=== PATIENT | male | born 1985 | race Caucasian/White ===

== ENCOUNTER 2019-11-03 16:50 | Emergency (ER) | payer BC, OTHER ==
[~2019-11-03] VITALS: Ht 182.9 cm; Wt 79.0 kg
[~2019-11-03 16:50] MED LIST: CLON1TAB PO; ERYT500T17 PO; ONDA4TAB10 PO; SCOP1PAT11 TD; TRAM200T34 PO; ZOLP10TA PO; [UNRECOGNIZED DRUG - CODE] PO
[2019-11-03] MEDS ORDERED: IV NORMAL SALINE 1,000ML 1,000 ML IV SCH (17:14)
[2019-11-03] MEDS ORDERED: HALOPERIDOL LACT 5 MG/ML VIAL. IVP ONE (17:15)
--- NOTE | 2019-11-03 17:25 | PHYS DOC ---
Past History Past Medical History: Anxiety, Other Additional Past Medical Histor: cyclic vomiting; gastorparesis (DAVEY MULLEN MD) Past Medical History Hx. of Cyclic Vomiting (JESSICA PITTMAN MD) Past Surgical History: Appendectomy, Cholecystectomy, Other Additional Past Surgical Histo: exploratory lap in which 3 in small intestines were removed (DAVEY MULLEN MD) Smoking: Cigarettes, Greater than 1 pack/day Alcohol Use: None Drug Use: None (DAVEY MULLEN MD) Smoking: Cigarettes Alcohol Use: Rarely Drug Use: Marijuana (JESSICA PITTMAN MD) General Adult EDM: Chief Complaint: NAUSEA/VOMITING/DIARRHEA HPI: HPI: Patient is a 33-year-old male who states he has a history of cyclic vomiting syndrome due to gastroparesis who presents to the emergency department for evaluation of intractable vomiting for the past 2 weeks. He also has generalized upper abdominal pain. He states he was seen at [facility] this past Sunday for similar symptoms. He states he has not had any bloody emesis, or loose or bloody stools. He states his symptoms feel exactly the same as his prior episodes of gastroparesis. He states he has a longstanding history of marijuana abuse, but states that he stopped smoking a few months ago. There are no alleviating or exacerbating factors to his symptoms. (DAVEY MULLEN MD) Review of Systems: Review of Systems: Constitutional: Denies fever or chills Eyes: Denies change in visual acuity HENT: Denies nasal congestion or sore throat Respiratory: Denies cough or shortness of breath Cardiovascular: Denies chest pain or edema GI: As per HPI : Denies dysuria Musculoskeletal: Denies back pain or joint pain Integument: Denies rash Neurologic: Denies headache, focal weakness or sensory changes Endocrine: Denies polyuria or polydipsia Lymphatic: Denies swollen glands Psychiatric: Denies depression. Admits to anxiety (DAVEY MULLEN MD) Heart Score: Risk Factors: Risk Factors: DM, Current or recent (<one month) smoker, HTN, HLP, family history of CAD, obesity. Risk Scores: Score 0 - 3: 2.5% MACE over next 6 weeks - Discharge Home Score 4 - 6: 20.3% MACE over next 6 weeks - Admit for Clinical Observation Score 7 - 10: 72.7% MACE over next 6 weeks - Early Invasive Strategies (DAVEY MULLEN MD) Current Medications: Current Meds: Current Medications Medications (Trade) Dose Ordered Sig/Te Start Time Stop Time Status Last Admin Dose Admin Haloperidol Lactate (Haldol) 5 mg 1X ONCE 11/03/19 17:15 11/03/19 17:16 UNV Lorazepam (Ativan Inj) 0.5 mg 1X ONCE 11/03/19 17:15 11/03/19 17:16 UNV Sodium Chloride 1,000 ml @ 1,000 mls/hr Q1H 11/03/19 17:14 11/03/19 18:13 UNV (DAVEY MULLEN MD) Allergies: Allergies: Allergies Coded Allergies Type Severity Reaction Last Updated Verified morphine Allergy Intermediate localized 11/03/19 Yes metoclopramide Allergy Unknown 11/03/19 Yes (DAVEY MULLEN MD) Physical Exam: PE: PHYSICAL EXAM: CONSTITUTIONAL: Well developed, well nourished HEAD: normocephalic, atraumatic EENT: PERRL, EOMI. Conjunctivae normal color, sclerae non-icteric; moist mucous membranes. NECK: Supple, non-tender; no meningismus. LUNGS: Lungs CTA, breathing even and unlabored. Normal air movement. HEART: Regular rate and rhythm, no murmur CHEST: No deformity; non-tender ABDOMEN: The abdomen is soft, there is mild diffuse upper abdominal tenderness to palpation, without focal tenderness, rebound, or guarding, bowel sounds are present, the mid and lower abdomen are soft and non-tender, no masses or bruits. EXTREM: Normal ROM; no deformity, no calf tenderness. Normal pulses palpable in all extremities. There is no pedal edema. SKIN: No rash; no diaphoresis NEURO: Alert; normal speech and cognition; CN's grossly intact; strength grossly intact without focal deficit. BACK: No CVA TTP. PSYCHIATRIC: Patient exhibits a moderately anxious affect. (DAVEY MULLEN MD) Current Patient Data: Vital Signs: Vital Signs Date Time Temp Pulse Resp B/P (MAP) Pulse Ox O2 Delivery O2 Flow Rate FiO2 11/03/19 16:50 99.5 78 18 163/86 (111) 99 Room Air (DAVEY MULLEN MD) EKG: EKG: [] (DAVEY MULLEN MD) Radiology/Procedures: Radiology/Procedures: [] (DAVEY MULLEN MD) Radiology/Procedures: [place] [address] IMAGING REPORT Signed PATIENT: MARIA ALEJANDRA DUQUE ACCOUNT: [id number] : 1985 LOCATION: ER AGE: 33 SEX: M EXAM STATUS: REG ER ORD. PHYSICIAN: JESSICA PITTMAN MD REASON: VOMITING, ABDOMINAL PAIN, CHILLS, HX BOWEL RESECTION PROCEDURE: ACUTE ABDOMEN SERIES Three-view acute abdominal series. HISTORY: Vomiting, abdominal pain, chills 3 views were taken for an acute abdominal series. Lungs are clear. Heart is normal in size. There is no pleural effusion. There is no free air on the upright view of the abdomen. There is one nonspecific air-fluid level on the upright view. A definite obstruction is not identified. The patient's had a cholecystectomy. There are changes from previous abdominal surgery during with a staple line on the left. IMPRESSION: 1. Nonspecific air-fluid level without definite obstruction. 2. Changes from previous surgeries. 3. No acute chest disease. Electronically signed by: Oj Julian MD (11/03/2019 6:50 PM) [facility] DICTATED AND SIGNED BY: OJ JULIAN MD DATE: 11/03/19 185 CC: JESSICA PITTMAN MD; MAURA BEST MD ~ (JESSICA PITTMAN MD) Course & Med Decision Making: Course & Med Decision Making Pertinent Labs and Imaging studies reviewed. (See chart for details) []6:00: Pt care turned over to Dr pittman at shift change, report given, labs, and final disposition pending. (DAVEY MULLEN MD) Course & Med Decision Making See Dr Mullen report for details. Patient still complaining of some nausea and requesting more comfort meds. Has been asleep however for the last 40 minutes. Will add some Toradol and Benadryl and additional thousand cc of LR. Will obtain a acute abdomen film.. Patient symptoms gradually cleared. Patient follow-up with primary care. Patient take Zofran 8 mg 4 times a day for active vomiting. Patient encouraged to stay on clear fluids next 48 hours to allow bowel rest. No solids or milk products. Patient encouraged to stop smoking. Patient encouraged to stop using marijuana since this can induce a hyper emesis syndrome . Impression- 1. Cyclic vomiting 2. Tobacco marijuana use (JESSICA PITTMAN MD) Dragon Disclaimer: Dragon Disclaimer: This electronic medical record was generated, in whole or in part, using a voice recognition dictation system. (DAVEY MULLEN MD) Departure Departure: Disposition: HOME/RESIDENCE PRIOR TO ADM Condition: STABLE Referrals: MAURA BEST MD (PCP) Scripts Ondansetron Hcl (ZOFRAN) 8 Mg Tablet 8 MG PO QIDPRN PRN for nv- active, #30 BOTTLE Prov: JESSICA PITTMAN MD 11/03/19 Famotidine (PEPCID) 20 Mg Tablet 20 MG PO BID for gerd, , #60 TAB Prov: JESSICA PITTMAN MD 11/03/19 Justification of Admission: Justification of Admission: Justification of Admission Dx: N/A (JESSICA PITTMAN MD) DAVEY MULLEN MD Nov 03, 2019 17:25 JESSICA PITTMAN MD Nov 03, 2019 18:21
[2019-11-03 17:42] LABS: BASO % 0 % (0-3); EOS % 0 % (0-3); HEMATOCRIT 44.6 % (39.0-53.0); HEMOGLOBIN 15.2 g/dL (13.0-17.5); LYMPH # 1.4 x10^3/uL (1.0-4.8); LYMPH % 10 % (24-48); MEAN CORPUSCULAR HEMOGLOBIN 30 pg (25-35); MEAN CORPUSCULAR HGB CONC 34 g/dL (31-37); MEAN CORPUSCULAR VOLUME 87 fL (79-100); MONO # 0.4 x10^3/uL (0.0-1.1); MONO % 3 % (0-9); NEUT # 12.5 x10^3uL (1.8-7.7); NEUT % 87 % (31-73); PLATELET COUNT 247 x10^3/uL (140-400); RED BLOOD COUNT 5.11 x10^6/uL (4.30-5.70); RED CELL DISTRIBUTION WIDTH 14.4 % (11.5-14.5); WHITE BLOOD COUNT 14.4 x10^3/uL (4.0-11.0)
[2019-11-03 17:50] LABS: CALCIUM 9.2 mg/dL (8.5-10.1); CREATININE 1.1 mg/dL (0.7-1.3); GFR 76.2; POTASSIUM 4.1 mmol/L (3.5-5.1)
[2019-11-03 17:57] LABS: ALBUMIN 4.2 g/dL (3.4-5.0); ALBUMIN/GLOBULIN RATIO 1.5 (1.0-1.7); TOTAL BILIRUBIN 0.5 mg/dL (0.2-1.0)
[2019-11-03 18:14] LABS: BARBITURATES NEG (NEG); BENZODIAZEPINES POS (NEG); BILIRUBIN,URINE NEG (NEG); CANNABINOIDS POS (NEG); CLARITY,URINE CLEAR; COCAINE NEG (NEG); COLOR,URINE YELLOW; GLUCOSE,URINE NEG (NEG); METHADONE NEG (NEG); NITRITE,URINE NEG (NEG); OPIATES NEG (NEG); PHENCYCLIDINE NEG (NEG); UROBILINOGEN,URINE 0.2 mg/dL (0.2 mg/dL)
[2019-11-03 18:15] LABS: AMORPHOUS SEDIMENT,UR PRESENT /HPF; BACTERIA,URINE 0 /HPF (0-FEW); RBC,URINE RARE /HPF (0-2); SQUAMOUS EPITHELIAL CELL,UR OCC /LPF; WBC,URINE RARE /HPF (0-4)
[2019-11-03] MEDS ORDERED: diphenhydrAMINE 50 MG/ML VIAL IVP ONE (18:15)
[2019-11-03] MEDS ORDERED: IV RINGERS SOLUTION,LACTATED 1,000 ML IV ONE (18:15)
[2019-11-03] MEDS ORDERED: KETOROLAC 30 MG/ML VIAL. IVP ONE (18:15)
[2019-11-03 18:17] LABS: AMPHETAMINE/METHAMPHETAMINE NEG (NEG)
--- NOTE | 2019-11-03 18:52 | RAD ---
Three-view acute abdominal series. HISTORY: Vomiting, abdominal pain, chills 3 views were taken for an acute abdominal series. Lungs are clear. Heart is normal in size. There is no pleural effusion. There is no free air on the upright view of the abdomen. There is one nonspecific air-fluid level on the upright view. A definite obstruction is not identified. The patient's had a cholecystectomy. There are changes from previous abdominal surgery during with a staple line on the left. IMPRESSION: 1. Nonspecific air-fluid level without definite obstruction. 2. Changes from previous surgeries. 3. No acute chest disease. Electronically signed by: Oj Julian MD (11/03/2019 6:50 PM) [facility]
[2019-11-03] MEDS ORDERED: FAMO-63 PO (19:47)
[2019-11-03] MEDS ORDERED: ONDA8TAB9 PO (19:47)
[2019-11-03 21:08] VITALS: BP 158/114
== END 2019-11-03 21:00 | disposition home or self-care (01) ==
LOC: ER 16:50
DX: R11.2 Nausea with vomiting, unspecified (principal); R10.84 Generalized abdominal pain; R10.10 Upper abdominal pain, unspecified; F41.9 Anxiety disorder, unspecified; F17.210 Nicotine dependence, cigarettes, uncomplicated; F12.90 Cannabis use, unspecified, uncomplicated; Z90.49 Acquired absence of other specified parts of digestive tract; Z98.890 Other specified postprocedural states; Z90.89 Acquired absence of other organs; Z88.6 Allergy status to analgesic agent; Z88.8 Allergy status to other drugs, medicaments and biological substances
CPT/HCPCS: 36415; 74022; 80053; 80307; 81001; 82150; 83690; 84484; 85025; 96361; 96374; 96375; 99285; J1200; J1630; J1885; J2060; J7030; J7120